=== PATIENT | female | born 1980 | race Caucasian/White ===

== ENCOUNTER 2020-04-04 11:40 | Inpatient (IN) | payer BC ==
[2020-04-04] MEDS ORDERED: ceFAZolin SODIUM 1 GM VIAL ONE (13:54)
[2020-04-04] MEDS ORDERED: morphine SULFATE/PF 0.5 MG/ML (2cc Syringe - QUVA) ONE (13:54)
[2020-04-04] MEDS ORDERED: PHENYLEPHRINE HCL 10 MG/1 ML SINGLE DOSE VIAL ONE (13:59)
[2020-04-04 14:02] VITALS: BMI 28.7
[2020-04-04] MEDS ORDERED: OXYTOCIN 20 UNITS in 0.9% NS 40 UNIT/2,000 ML INFUS.BAG IV ONE (14:11)
[2020-04-04] MEDS ORDERED: DEXAMETHASONE SOD PHOSPHATE 4 MG/1 ML VIAL ONE (14:37)
[2020-04-04] MEDS ORDERED: ONDANSETRON 4 MG/2 ML VIAL IVPUSH PRN (15:16)
[2020-04-04] MEDS ORDERED: ACETAMINOPHEN 1000 MG/100 ML VIAL (NON FORMULARY) IVPB PRN (15:18)
[2020-04-04] MEDS ORDERED: IBUPROFEN 800 MG/8 ML IJ IVPB PRN (16:05)
[2020-04-04] MEDS ORDERED: oxyCODONE HCL 5 MG TABLET PO PRN ×2 (16:05)
[2020-04-04] MEDS ORDERED: BENZOCAINE 28 GM HEMORRHOIDAL OINTMENT RC PRN (16:05)
[2020-04-04] MEDS ORDERED: METHYLERGONOVINE MALEATE 0.2 MG/1 ML AMP IM PRN (16:05)
[2020-04-04] MEDS ORDERED: BENZOCAINE 20% 57 GM BOTTLE TP PRN (16:05)
[2020-04-04] MEDS ORDERED: WITCH HAZEL 50% (TUCKS) 40 PAD/JAR PAD TP PRN (16:05)
[2020-04-04] MEDS ORDERED: diphenhydrAMINE HCL 25 MG CAPSULE (FP) PO PRN (16:05)
--- NOTE | 2020-04-04 16:12 | OP ---
Operative Note - Note: Operative Date: 04/04/20 Pre-Operative Diagnosis: 39 weeks ,previous c/s Operation: repeat LST c/s Findings: live baby boy , 9/9 , rot Surgeon: Mitchell Drake Medical Reception: Nacho Johnston Anesthesiologist/TELECOMMUNICATIONS MANAGER: Meghna Mccord Anesthesia: Spinal Specimens Removed: placenta Estimated Blood Loss (mls): 500 Drains & Tubes with Location: [place] Blood Volume Replaced (mls): 0 Operative Report Dictated: Yes
[2020-04-04] MEDS ORDERED: OXYTOCIN 20 UNITS in 0.9% NS 20 UNIT/1,000 ML INFUS.BAG IV SCH (16:15)
[2020-04-04] MEDS: CEFAZOLIN 1 GM/D5W 1 GM/50 ML BAG IVPB SCH (19:42)
--- NOTE | 2020-04-04 21:04 | HP ---
Past Medical History - Primary Care Physician PCP:: Mitchell Drake - Admission Chief Complaint: 39 weeks, previuos c/s , request of repeat c/s History of Present Illness: 39 yo f g [id number] with one previous c/s, requesting repeat c/s, cx clp. vx -3 mr , fhr cat 1 History Source: Patient Limitations to Obtaining History: No Limitations - Past Medical History ...: 3 ...Para: 1 ...Term: 1 ...: 0 ...Spon : 0 ...Induced : 1 ...Living Children: 1 ...Multiple Gestation: 0 ...EDC by Sono: 04/11/20 - Past Surgical History Past Surgical History: Yes: Hx Myomectomy: No Hx Transabdominal Cerclage: No - Smoking History Smoking history: Never smoked Have you smoked in the past 12 months: No - Alcohol/Substance Use Hx Alcohol Use: No - Social History Usual Living Arrangement: Yes: With Spouse History of Recent Travel: No Home Medications - Allergies Allergies/Adverse Reactions: Allergies Allergy/AdvReac Type Severity Reaction Status Date / Time No Known Allergies Allergy Verified 04/04/20 13:25 - Home Medications Home Medications: Ambulatory Orders Ferrous Sulfate [Feosol] 325 mg PO BID 04/04/20 Vitamins (Sjr) - 1 tab PO DAILY 04/04/20 Review of Systems - Review of Systems Constitutional: reports: No Symptoms Eyes: reports: No Symptoms HENT: reports: No Symptoms Neck: reports: No Symptoms Cardiovascular: reports: No Symptoms Respiratory: reports: No Symptoms Gastrointestinal: reports: No Symptoms Genitourinary: reports: No Symptoms Breasts: reports: No Symptoms Reported Musculoskeletal: reports: No Symptoms Integumentary: reports: No Symptoms Neurological: reports: No Symptoms Endocrine: reports: No Symptoms Hematology/Lymphatic: reports: No Symptoms Psychiatric: reports: No Symptoms Physical Exam - Maternity Vital Signs: Vital Signs Temperature 97.3 F L 04/04/20 17:00 Pulse Rate 61 04/04/20 17:00 Respiratory Rate 18 04/04/20 20:00 Blood Pressure 123/77 04/04/20 17:00 O2 Sat by Pulse Oximetry (%) 100 04/04/20 16:30 Constitutional: Yes: Well Nourished, No Distress, Calm Eyes: Yes: WNL, Conjunctiva Clear, EOM Intact HENT: Yes: WNL, Atraumatic, Normocephalic Neck: Yes: WNL, Supple, Trachea Midline Cardiovascular: Yes: WNL, Regular Rate and Rhythm Breast(s): Yes: WNL - Abdominal Exam/OB Fundal Height: 38 Number of Fetuses: Single Presentation: Vertex Contractions: No Intensity: Unaware Monitor Mode: External Heart Rate Location: [facility] Category: I Accelerations: Non-Uniform Decelerations: None - Vaginal Exam/OB Vaginal Bleeding: No Speculum Exam: No Dilatation (cm): closed Effacement (%): 0 Amniotic Membrane Status: Intact Presentation: Vertex/Position Station: -3 - Physical Exam Edema: LLE: Trace, RLE: Trace Deep Tendon Reflex Grade: Normal +2 Psychiatric: Yes: WNL Hemorrhage Risk Assessment - Risk Factors Medium Risk Factors: Yes: Prior , uterine surgery,or multiple laparotomies Risk Score: 1 Risk Level: Medium Risk Problem List - Problems (1) 39 weeks gestation of Code(s): Z3A.39 - 39 WEEKS GESTATION OF (2) Previous section complicating Code(s): O34.219 - MATERNAL CARE FOR UNSP TYPE SCAR FROM PREVIOUS DEL (3) Advanced maternal age (AMA) in Code(s): AGO5561 - Assessment/Plan repeat c/s , risks , benfit and ulternatives discussed
[2020-04-04] MEDS: DEXTROSE 5%-LACTATED RINGERS 1,000 ML IV SCH (23:13)
[2020-04-05] MEDS: CEFAZOLIN 1 GM/D5W 1 GM/50 ML BAG IVPB SCH (02:56)
--- NOTE | 2020-04-05 06:37 | PN ---
Progress Note (short form) - Note Progress Note: pod 1 s/p repeat c/s , doing well, no excess vaginal bleeding Last Vital Signs Temp Pulse Resp BP Pulse Ox 98.8 F 78 18 119/66 100 04/05/20 05:36 04/05/20 05:36 04/05/20 06:00 04/05/20 05:36 04/04/20 16:30 abdomen soft, no distension, no cva incision dry, clean lochia mild no calf tenderness plan ambulate cbc advance diet Problem List - Problems (1) 39 weeks gestation of Code(s): Z3A.39 - 39 WEEKS GESTATION OF (2) Previous section complicating Code(s): O34.219 - MATERNAL CARE FOR UNSP TYPE SCAR FROM PREVIOUS DEL (3) Advanced maternal age (AMA) in Code(s): XBP0822 -
--- NOTE | 2020-04-05 08:07 | PN ---
Progress Note (short form) - Note Progress Note: 39F s/p repeat C/S under duramorph spinal. No new c/o. Vital Signs Temp 98.8 F 04/05/20 05:36 Pulse 78 04/05/20 05:36 Resp 18 04/05/20 06:00 BP 119/66 04/05/20 05:36 Pulse Ox 100 04/04/20 16:30 Intake & Output 04/04/20 04/04/20 04/05/20 11:59 23:59 11:59 Intake Total 2200 Output Total 550 1400 Balance 1650 -1400 Weight 157 lb Intake: IV 2200 NORMAL SALINE+20 UNITS 1200 OXYTOCIN - 20 unit In 1, 000 ml @ 125 mls/hr IV ASDIR [facility] Rx#:[id number] 1000 Output: Urine 550 1400 Gutierrez 550 1400 Other: Voiding Method Indwelling Catheter Indwelling Catheter Height 5 ft 2 in Body Mass Index (BMI) 28.7 Weight 6 lb 15 oz Length 18.5 in - No anesthesia complications
[2020-04-05] MEDS: IBUPROFEN 600 MG TABLET (FP) PO PRN ×2 (09:01→17:46)
[2020-04-05] MEDS: SIMETHICONE 80 MG TAB.CHEW (FP) PO PRN ×2 (09:02→17:49)
[2020-04-05] MEDS: ENOXAPARIN NA (PORCINE) 40 MG/0.4 ML DISP.SYRIN SQ SCH (09:16)
[2020-04-05 09:59] LABS: BASO % 0.1 % (0-2.0); EOS % 0.1 % (0-4.5); HEMATOCRIT 35.8 % (32.4-45.2); HEMOGLOBIN 11.8 GM/dL (10.7-15.3); LYMPH % 12.7 % (8-40); MCH 30.1 pg (25.7-33.7); MCHC 33.1 g/dl (32.0-36.0); MEAN CELL VOLUME 90.9 fl (80-96); MEAN PLT VOLUME 9.1 fl (7.5-11.1); MONO % 3.6 % (3.8-10.2); NEUT % 83.5 % (42.8-82.8); PLATELET COUNT 195 K/MM3 (134-434); RBC 3.94 M/mm3 (3.60-5.2); RDW 13.5 % (11.6-15.6); WHITE BLOOD COUNT 14.7 K/mm3 (4.0-10.0)
--- NOTE | 2020-04-05 15:46 | DS ---
Physical Exam-PAD EXTRACTION TENDER Vital Signs: Vital Signs Temperature 98.2 F 04/05/20 14:57 Pulse Rate 84 04/05/20 14:57 Respiratory Rate 20 04/05/20 14:57 Blood Pressure 104/60 04/05/20 14:57 O2 Sat by Pulse Oximetry (%) 100 04/04/20 16:30 Constitutional: Yes: Well Nourished, No Distress, Calm Eyes: Yes: WNL, Conjunctiva Clear, EOM Intact HENT: Yes: WNL, Atraumatic, Normocephalic Neck: Yes: WNL, Supple, Trachea Midline Cardiovascular: Yes: WNL, Regular Rate and Rhythm Respiratory: Yes: WNL, Regular, CTA Bilaterally Gastrointestinal: Yes: WNL, Normal Bowel Sounds, Soft ...Rectal Exam: Yes: WNL Renal/: Yes: WNL ....Post : Yes: Uterus firm, Uterus non-tender, Slight lochia rubra Breast(s): Yes: WNL Musculoskeletal: Yes: WNL Extremities: Yes: WNL Edema: Yes Edema: LLE: Trace, RLE: Trace Integumentary: Yes: WNL Wound/Incision: Yes: Clean/Dry, Well Approximated, Sutures Intact, Steri Strips, Open to air, Dressing Removed Neurological: Yes: WNL, Alert, Oriented ...Motor Strength: WNL Psychiatric: Yes: WNL, Alert, Oriented Labs: CBC, BMP 04/05/20 09:34 Delivery - Delivery Section: Repeat, Low Flap Transverse Type of Anesthesia: Spinal Episiotomy/Laceration: None EBL (cc): 500 Delivery, Single - Stages of Labor Date of Delivery: 04/04/20 Time of Delivery: 14:36 Time Placenta Delivered: 14:37 Placenta: Yes: Manual Removal, Normal Configuration - Condition of Infant English Horn Player/Product Ambassador Present: Yes Name: Taty Moon Gender: Male Weight: 3.147 kg Position: Left, OT Total Hours ROM (Hrs/Mins): 0hrs 2min - 1 Minute Total Score: 9 5 Minutes Total Score: 9 - Feeding Plan Initial Plan: Exclusive throughout hospitalization Benefits of Exclusively reinforced: Yes Discharge Summary Problems reviewed: Yes Reason For Visit: Current Active Problems 39 weeks gestation of (Acute) Advanced maternal age (AMA) in (Acute) Previous section complicating (Acute) Procedures: Principal: Repeat LT C/S Hospital Course: Normal recovery, normal postoperative recovery Goals: Normal recovery, normal postoperative recovery Condition: Good - Instructions Diet, Activity, Other Instructions: Physical activity Resume your normal everyday activity as tolerated no heavy lifting or exercise until seen by your surgeon. You may walk unlimited marcio of and climb stairs. You may resume driving the car when you feel safe and comfortable behind the wheel. No sexual activity as instructed. Wound care If you have a bandage, leave it on, and keep dry for 48-72 hours. After that time discard the outer bandage. If they are tapes on the skin under the out of bandage leave them in place. They will peel off in the next 7 to 10 days. Do Not Peel them off. You may shower the day after surgery. If there are tapes present on the skin, you may shower over them. Diet There are no dietary restrictions. Eat healthy, high-fiber foods. Drink 6 to 8 glasses of liquid each day. This will assist in keeping your bowels are regular. Pain management You may take Tylenol or acetaminophen or Ibuprofen (for example, Motrin, Advil etc.) from my pain prescription medication is ordered should be taken as prescribed for moderate to severe pain. Call MD for any of the following: Severe pain not relieved by medication Fever of 101 or higher Excessive bleeding or drainage on dressing Inability to urinate Referrals: Mitchell Drake MD [Staff Physician] - 1 Week Disposition: HOME - Home Medications Comprehensive Discharge Medication List: Ambulatory Orders Ferrous Sulfate [Feosol] 325 mg PO BID 04/04/20 Vitamins (Sjr) - 1 tab PO DAILY 04/04/20 Ibuprofen [Motrin -] 600 mg PO TID PRN #30 tablet 04/05/20 Oxycodone HCl [Roxicodone] 5 mg PO Q4H PRN #20 tablet MDD 8 04/05/20 Prescription Drug Monitoring Program (I-STOP) results: I-STOP not reviewed
[2020-04-05] MEDS ORDERED: BISACODYL 10 MG SUPP.RECT PR PRN (16:05)
[2020-04-05] MEDS: ACETAMINOPHEN 325 MG TABLET (FP) PO PRN (17:48)
--- NOTE | 2020-04-05 19:19 | OP ---
DATE OF OPERATION: 04/04/2020 PREOPERATIVE DIAGNOSIS: 39 weeks, previous section, request of repeat section. POSTOPERATIVE DIAGNOSIS: 39 weeks, previous section, request of repeat section. PROCEDURE: Repeat low segment transverse section. SURGEON: Doron Drake MD. HARDENING MACHINE OPERATOR: KIERAN Preston. ANESTHESIA: Spinal. ANESTHESIOLOGIST: Meghna Mccord MD. ESTIMATED BLOOD LOSS: 500 mL. OPERATION: Patient was taken to operating room with adequate spinal anesthesia. Abdomen and perineum were prepped and draped. Pfannenstiel abdominal skin incision was made over previous incision. Abdominal wall was cut layer by layer until the peritoneum was exposed and incised. Upon entering the abdominal cavity, the lower uterine segment was identified, and uterovesical fold of the peritoneum was established. The bladder was pushed down. Then with the lower blade of the [place] retractor in the pelvis, a low transverse uterine incision was made. The incision extended laterally. Amniotic sac was entered. Clear fluid. Head delivered from left occiput posterior position. Nasopharynx was suctioned. A live baby boy was delivered. Apgars 9 and 9. Placenta was delivered manually. Uterine cavity was cleared of all remaining tissue. Uterine incision was closed in 2 layers, the 1st layer with 0 Biosyn continuous suture, the 2nd layer with 0 Biosyn imbricating the 1st layer. Bladder flap was closed with 0 Biosyn continuous suture. Both tubes and ovaries were checked and were normal. No active bleeding was seen. All the lap, sponge, and instrument counts were correct. Peritoneum was closed with 0 Biosyn continuous suture. Muscles were brought together interrupted suture with 0 Biosyn. Fascia was closed with 0 Biosyn continuous sutures. Subcutaneous fat interrupted sutures 0 Biosyn, and the skin was closed with 3-0 Biosyn subcuticular continuous suture. The patient tolerated the procedure well and left the OR in good condition. DORON DRAKE M.D. [id number]
[2020-04-05] MEDS: DEXTROSE 5%-LACTATED RINGERS 1,000 ML IV SCH (20:19)
[2020-04-06] MEDS: SIMETHICONE 80 MG TAB.CHEW (FP) PO PRN ×2 (00:06→09:28)
[2020-04-06] MEDS: ACETAMINOPHEN 325 MG TABLET (FP) PO PRN ×2 (00:07→09:27)
[2020-04-06] MEDS: IBUPROFEN 600 MG TABLET (FP) PO PRN ×2 (00:07→09:28)
[2020-04-06] MEDS: ENOXAPARIN NA (PORCINE) 40 MG/0.4 ML DISP.SYRIN SQ SCH (09:29)
[2020-04-06 09:39] VITALS: BP 107/72; PULSE 83; TEMP 98.4
--- NOTE | 2020-04-06 12:22 | PN ---
Post Progress Note - Subjective Subjective: Patient without acute complaints. Reports tolerating oral intake without nausea or vomiting. Ambulating without dizziness. Denies fevers or chills. Pain well controlled with oral pain medication. Pumping/breast feeding without issue. Passing flatus. Post Day: 2 Type of Delivery: Repeat C/S Vital Signs: Vital Signs Temperature 98.4 F 04/06/20 09:35 Pulse Rate 83 04/06/20 09:35 Respiratory Rate 18 04/06/20 09:35 Blood Pressure 107/72 04/06/20 09:35 O2 Sat by Pulse Oximetry (%) 100 04/04/20 16:30 Breast Exam: Yes: Soft Uterus: Yes: Fundus Firm, Fundus below umbilicus, Non-tender Incision: Yes: Sutures intact Abdomen/GI: Yes: Abdomen soft, Passing flatus, Tolerating PO Lochia: Yes: Rubra Lochia, amount: Small Extremities: Yes: Calves non-tender Perineum: Yes: Intact Activity: Ambulating - Labs Labs: CBC WBC 14.7 K/mm3 (4.0-10.0) H 04/05/20 09:34 RBC 3.94 M/mm3 (3.60-5.2) 04/05/20 09:34 Hgb 11.8 GM/dL (10.7-15.3) 04/05/20 09:34 Hct 35.8 % (32.4-45.2) 04/05/20 09:34 MCV 90.9 fl (80-96) 04/05/20 09:34 MCH 30.1 pg (25.7-33.7) 04/05/20 09:34 MCHC 33.1 g/dl (32.0-36.0) 04/05/20 09:34 RDW 13.5 % (11.6-15.6) 04/05/20 09:34 Plt Count 195 K/MM3 (134-434) 04/05/20 09:34 MPV 9.1 fl (7.5-11.1) 04/05/20 09:34 Absolute Neuts (auto) 12.2 K/mm3 (1.5-8.0) H 04/05/20 09:34 Neutrophils % 83.5 % (42.8-82.8) H D 04/05/20 09:34 Lymphocytes % 12.7 % (8-40) D 04/05/20 09:34 Monocytes % 3.6 % (3.8-10.2) L 04/05/20 09:34 Eosinophils % 0.1 % (0-4.5) 04/05/20 09:34 Basophils % 0.1 % (0-2.0) 04/05/20 09:34 Nucleated RBC % 0 % (0-0) 04/05/20 09:34 Assessment/Plan 39 yo P1 s/p repeat LT C/S, doing well stable, afebrile. The pt is asymptomatic for s/sxs of anemia. care instructions reviewed. Continue routine postop care. Postoperative care and instructions reviewed. Ambulation encouraged. Follow-up in office discussed.
[2020-04-06] MEDS ORDERED: SENNOSIDES/DOCUSATE COMBO (SENNA PLUS) TABLET (UD) PO PRN (22:00)
--- NOTE | 2020-04-10 17:54 | PATH ---
Surgical Pathology Report Patient Name: ARVIND HARTMAN Med. Rec. #: [id number] /Age/Gender: 1980 (Age: 39) / F Account: [id number] Location: [address] [place] [address] OBG/CARDIAC SONOGRAPHER Taken: 04/04/2020 Received: 04/05/2020 Reported: 04/10/2020 Physicians: Mitchell Drake M.D. Specimen(s) Received PLACENTA Clinical History Final Diagnosis PLACENTA: THIRD TRIMESTER PLACENTA. TRIVASCULAR CORD. MEMBRANES WITH NO DIAGNOSTIC ABNORMALITIES. Electronically Signed Dutch Paredes M.D. Gross Description The specimen is received fresh labeled placenta and is a 482 gram, 17.5 x 13.5 x 3.1 cm. placenta with attached membranes and umbilical cord. The attached membranes are gonzales, translucent with focal opacities and insert marginally. The umbilical cord measures 30 cm. in length and averages 1.4 cm. in diameter. The cord inserts eccentrically, 3.5 cm. to the nearest margin. No true knots or strictures are identified. Cut surface of the umbilical cord reveals 3 vessels. The surface is delacruz-blue with minimal fibrin deposition and appropriate caliber vessels. The maternal surface is red-brown with focal defects. Sectioning reveals red-brown, spongy parenchyma. No lesions are identified. Steam Drier Operator sections are submitted in three cassettes as follows: 1- membrane rolls and umbilical cord; 2-3- full thickness sections of placenta. 04/08/2020 formerly [facility]04/08/2020
== END 2020-04-06 12:20 | disposition home or self-care (01) | DRG 788 ==
LOC: JLDR 11:40 → J3N 16:50
PROVIDERS: ADMIT Obstetrics & Gynecology; ATTEND Obstetrics & Gynecology
PROC: 10D00Z1 Extraction of Products of Conception, Low, Open Approach (ICD-10-PCS; principal; 2020-04-04)
DX: O34.219 Maternal care for unspecified type scar from previous cesarean delivery (principal); Z3A.39 39 weeks gestation of pregnancy; Z37.0 Single live birth
CPT/HCPCS: 36415; 85025; 85461; 86999; 88307-TC